=== PATIENT | male | born 1970 | race Caucasian/White ===

== ENCOUNTER → 2019-08-13 09:27 | Day surgery (SDC) | payer BC ==
[~2019-08-13 09:27] MED LIST: Buffered Lidocaine 1% SYRIN* 1 ML/SYRINGE INTRADERM ONE; Bupivacaine 0.25% SDV* 30 ML ONE; HYDROcodone/ACETAMIN 5-325 MG* 1 TAB ONE; HYDROmorphone INJ1* 1 MG/ML SYRINGE ONE; Lactated Ringers 1000 ML Bag* 1,000 ML IV SCH; Lidocaine 2% PF * 5 ML VIAL ONE; Midazolam* 1 MG/ML 2 ML VIAL (2 MG) ONE; Naloxone* 0.4 MG/ML 1 ML VIAL IV PRN; Ondansetron INJ* 2 MG/ML VIAL IV PRN; Propofol* 10 MG/ML 20 ML BTL ONE; ceFAZolin 2 GM PREMIX in ORs 2 GM/50 ML BAG ONE; fentaNYL* 50 MCG/ML 5 ML VIAL (250 MCG VIAL) ONE
[2019-08-13] MEDS: HYDROmorphone INJ1* 1 MG/ML SYRINGE IV PRN ×5 (16:02→16:37)
[2019-08-13 17:13] VITALS: BP 135/86
--- NOTE | 2019-08-14 06:06 | OP ---
DATE OF OPERATION: 08/13/19 - [facility] DATE OF : 72 SURGEON: Chauncey Conway MD LEGISLATIVE ASSISTANT: LENIN Garcia. An conservation assistant was needed for the entirety of the procedure to aid in positioning of the arm and retraction. ANESTHESIOLOGIST: Dr. Gonzalez. ANESTHESIA: General. PRE-OP DIAGNOSES: 1. Right thumb failed carpometacarpal arthroplasty. 2. 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 3. Symptomatic right hand mini TightRope implant. POST-OP DIAGNOSES: 1. Right thumb failed carpometacarpal arthroplasty. 2. 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 3. Symptomatic right hand mini TightRope implant. OPERATIVE PROCEDURE: 1. Revision, right thumb carpometacarpal arthroplasty. 2. Distally based split flexor carpi radialis tendon transfer for thumb suspension and tendon interposition. 3. Right partial trapezoidectomy. 4. Right thumb metacarpophalangeal joint volar capsulodesis. 5. Removal of deep mini TightRope implant right hand. INDICATIONS: Mr. Mireles had the CMC arthroplasty, it was very painful. We talked about treatment options, risks, and benefits; he had wanted to proceed. ESTIMATED BLOOD LOSS: 2 mL. COMPLICATIONS: None. FINDINGS: See above and below. DESCRIPTION OF PROCEDURE: Mr. Mireles was seen in the preoperative holding area. The correct site, side, and procedures were identified. We came back to the operating room, the arm was prepped and draped in the usual fashion and a time-out was performed. The arm was exsanguinated and the tourniquet inflated. I went ahead and made a longitudinal incision over the dorsoradial what would have been the CMC joint at the site of the prior trapeziectomy. Dissection was carried down longitudinally to preserve the sensory nerves. The radial artery was mobilized , retracted out of the way. I went ahead and opened up the capsule over the CMC joint and at the site of trapeziectomy. I went ahead and released this off the base of the thumb metacarpal bone and off the distal pole of the scaphoid, immediately seen with full-thickness cartilage loss on the radial aspect of the trapezoid, where the thumb metacarpal base articular surface was now articulating with the radial aspect of the trapezoid and we had full-thickness cartilage loss there. He also had full-thickness cartilage loss at the distal pole of scaphoid and in the palmar aspect of the scaphotrapezoid joint. I then went ahead and removed the mini TightRope device. I released this off the metacarpal base. The button was removed. I then came and made a 1 cm incision over the dorsum of the second metacarpal where the knot was very prominent there. Once I got deep to the fascia, then a fiberwire knot was seen. I went ahead and cut the knot off with the scissors. I then removed the other button. At this point, the mini TightRope device was completely removed. I irrigated out the wound and closed the skin over the second metacarpal with a 4-0 nylon suture. I then turned my attention to excising part of the trapezoid bone. I used the small osteotome and excised the proximal 3 to 4 mm of the trapezoid. This came out in one nice piece. The distal pole of the scaphoid was again examined. Full thickness cartilage loss was seen on the palmar aspect. I went ahead and placed bone wax on the cancellous portion of the trapezoid where I had performed the excision. I then excised the osteophyte off the proximal aspect of the thumb metacarpal base and I used the sagittal saw to freshen up the bone on the proximal aspect of the metacarpal. There was prominent portion that was rubbing on the trapezoid bone. After I had done this, things were looking much nicer. I went ahead and took my sequentially large drill bits and I made a bone tunnel from the dorsoradial thumb metacarpal base exiting out the volar ulnar articular surface near the origin of the FCR tendon insertion. The FCR tendon was seen and preserved in the base of the wound. At this point, things were looking good. The partial trapeziectomy looked good. The CMC joint area had all been revised and was looking very nice. I decided to go ahead and spin the thumb. I went ahead and made three 1 cm incisions on the volar aspect of the forearm, the first just proximal to the writ flexion crease, each of the other 2 about 7 or 8 cm proximal to the left. The FCR tendon sheath was released. I then brought the tendon up out of the wound distally and made a longitudinal split and then placed a 26 gauge wire through the split. A Eduarda clamp was then used to pull the wire up into the most proximal wound releasing half the tendon at the musculotendinous junction. The tendon tail was pulled onto the distal wound. I then used two 26 gauge wires to shuttle it down into the thumb base wound. The tendon split was taken all the way down to the base of the second metacarpal. I then used a 26-gauge wire to pull the free tail of the tendon up through the bone tunnel. I then wrapped the tendon tail back around the intact limb of the FCR tendon. Maximum tension was set and I secured the tendon transfer with three [id number] 3- 0 Ethibond suture. The first sewing off three limbs of the tendon, transferred together. The lasting two sewing intact limb to intact limb. At this point I was very pleased with the suspension of the thumb. There was no more crepitus. There was no contact between the bones. I wanted to go ahead and provide some soft tissue interposition and so I took some AlloDerm allograft tissue and I folded that up into a rectangle and secured it along the margins with a 4-0 Ethibond suture. I then placed that as an interposition between the distal pole of the scaphoid and the proximal trapezoid. I then took a second piece of the cadaver tissue and secured that with a 4-0 Ethibond suture and then placed that as an interposition between the base of the metacarpal and the trapezoid and the distal pole of the scaphoid. I had put bone wax all over the cancellous bone on the proximal aspect of the metacarpal base. At this point, I thought everything was looking very nice. The wound was irrigated out, the capsule was closed with 3-0 Vicryl suture. The skin was closed with 4-0 nylon suture. All the wounds have been irrigated out. Lastly, I wanted to tighten up the palmar aspect of the MCP joint. I made a V- shaped incision over the palmar aspect of the MCP joint. A radial and ulnarly- based flap was raised and sewn back. The radial and ulnar digital nerves were identified and protected. The A1 leeanna was released. The tendon was retracted radially. I raised a distally based volar plate U flap and had that fully mobilized. I then placed 2 DePuy Mini Mitek suture anchors in the metacarpal neck just proximal to the condyles. A 2-0 Ethibond suture was used to sew up into the volar plate and once I had done that I tied up both sutures and everything came down nice and tight. I did a little whipstitch with the suture. I created a 30 degree block to MCP joint extension. At this point I thought a capsulodesis was very nice. The wound was irrigated out, skin was closed with 4-0 nylon suture. 0.25% Marcaine was infiltrated about all of the wounds. Wounds were dressed with Xeroform, 4x4s, sterile Webril, and then a thumb spica splint was applied. He was taken to the recovery room in stable condition. [id number]/[facility] #: [id number] KAITLIN
== END | disposition home or self-care (01) ==
LOC: OR 09:27
PROVIDERS: ATTEND Orthopaedic Surgery Hand Surgery
DX: T84.89XA Other specified complication of internal orthopedic prosthetic devices, implants and grafts, initial encounter (principal); M18.11 Unilateral primary osteoarthritis of first carpometacarpal joint, right hand; M24.241 Disorder of ligament, right hand; I10 Essential (primary) hypertension; E78.00 Pure hypercholesterolemia, unspecified; M19.90 Unspecified osteoarthritis, unspecified site; F17.210 Nicotine dependence, cigarettes, uncomplicated
CPT/HCPCS: 88300; C1713; J0690; J1170; J2250; J2704; J3010; J3490; Q4116